=== PATIENT | female | born 1945 | race Caucasian/White ===

== ENCOUNTER 2019-06-26 11:40 | Emergency (ER) | payer OTHER, MEDICARE ==
[2019-06-26 11:50] VITALS: BMI 29.2
--- NOTE | 2019-06-26 12:13 | PDOC ---
History of Present Illness - General Chief Complaint: Lightheaded Stated Complaint: SENT BY DOC Time Seen by Provider: 06/26/19 12:12 History Source: Patient - History of Present Illness Initial Comments: 06/26/19 13:01 Ms. Clarke is a 73 y/o woman w/hx HTN presenting with acute worsening of two months of lower back and L leg pain. She reports following closely with Dr. Chapa who has been managing her for a presumed sciatica. She reports several weeks of physical therapy which has not changed her symptoms. She reports presenting to the hospital today at the request of Dr. Chapa for outpatient blood work, and having an acute worsening of her pain today when attempting to stand after registering. She reports 10/10 L lower back and buttock pain, non radiating, stabbing pain. She reports taking x2 motrin this morning which did not improve the pain. She denies any fevers, IVDU, sob, chest pain, mariia-rectal or groin numbness, urinary retention, fecal incontinence. She reports numbness over her L foot. She reports severe pain with movement. Past History - Past Medical History Allergies/Adverse Reactions: Allergies Allergy/AdvReac Type Severity Reaction Status Date / Time No Known Drug Allergies Allergy Verified 06/26/19 11:50 Home Medications: Ambulatory Orders Calcium Carbonate/Vitamin D3 [Calcium 600-Vit D3 200 Tablet] 1 each PO DAILY Lovastatin 10 mg PO HS 05/17/12 Magnesium Oxide [Magnesium] 800 mg PO DAILY 05/17/12 Metoprolol Succinate [Toprol XL -] 50 mg PO DAILY 05/17/12 Omeprazole Magnesium [Prilosec (OTC)] 20 mg PO DAILY 05/17/12 Riboflavin (Vitamin B2) [Vitamin B-2] 200 mg PO DAILY 05/17/12 Amlodipine Besylate 5 mg PO DAILY 06/26/19 Cyclobenzaprine HCl [Flexeril -] 5 mg PO BID PRN 5 Days #10 tablet 06/26/19 Losartan Potassium 100 mg PO DAILY 06/26/19 Anemia: No Asthma: No Cancer: No Cardiac Disorders: No CVA: No COPD: No CHF: No Dementia: No Diabetes: No GI Disorders: Yes (ULCER) Disorders: No HTN: Yes Hypercholesterolemia: Yes Liver Disease: No Seizures: No Thyroid Disease: No - Surgical History Abdominal Surgery: No Appendectomy: No Cardiac Surgery: No Cholecystectomy: No Lung Surgery: No Neurologic Surgery: No Orthopedic Surgery: No - Psycho Social/Smoking Cessation Hx Smoking History: Never smoked Have you smoked in the past 12 months: No Hx Alcohol Use: No Drug/Substance Use Hx: No Substance Use Type: Alcohol Hx Substance Use Treatment: No Review of Systems - Review of Systems Able to Perform ROS?: Yes Comments:: 06/26/19 13:25 ROS: GENERAL/CONSTITUTIONAL: No fever or chills. No weakness. HEAD, EYES, EARS, NOSE AND THROAT: No change in vision. No ear pain or discharge. No sore throat. CARDIOVASCULAR: No chest pain or shortness of breath RESPIRATORY: No cough, wheezing, or hemoptysis. GASTROINTESTINAL: No nausea, vomiting, diarrhea or constipation. GENITOURINARY: No dysuria, frequency, or change in urination. MUSCULOSKELETAL: Low back pain, L rey pain, L buttock pain. No other joint or muscle swelling or pain. No neck or back pain. SKIN: No rash NEUROLOGIC: L foot numbness. No headache, vertigo, loss of consciousness, or other change in strength/sensation. ENDOCRINE: No increased thirst. No abnormal weight change HEMATOLOGIC/LYMPHATIC: No anemia, easy bleeding, or history of blood clots. ALLERGIC/IMMUNOLOGIC: No hives or skin allergy. *Physical Exam - Vital Signs Last Vital Signs Temp Pulse Resp BP Pulse Ox 97.7 F 76 16 141/72 98 06/26/19 11:47 06/26/19 11:47 06/26/19 11:47 06/26/19 11:47 06/26/19 11:47 - Physical Exam 06/26/19 13:27 PE: GENERAL: Awake, alert, and fully oriented, laying back in hospital bed. Writhing with movement of lower back. HEAD: No signs of trauma, normocephalic, atraumatic EYES: PERRLA, EOMI, sclera anicteric, conjunctiva clear ENT: Auricles normal inspection, hearing grossly normal, nares patent, oropharynx clear without exudates. Moist mucosa NECK: Normal ROM, supple, no lymphadenopathy, JVD, or masses LUNGS: No distress, speaks full sentences, clear to auscultation bilaterally HEART: Regular rate and rhythm, normal S1 and S2, no murmurs, rubs or gallops, peripheral pulses normal and equal bilaterally. ABDOMEN: Soft, nontender, normoactive bowel sounds. No guarding, no rebound. No masses EXTREMITIES : No pain with passive ranging of L knee. Pain with passive hip flexion past 45 degrees. No point tenderness. Normal inspection, no edema. No clubbing or cyanosis NEUROLOGICAL: Cranial nerves II through XII grossly intact. Normal speech, no focal sensorimotor deficits SKIN: Warm, Dry, normal turgor, no rashes or lesions noted ED Treatment Course - LABORATORY CBC & Chemistry Diagram: 06/26/19 12:53 06/26/19 12:53 Medical Decision Making - Medical Decision Making 06/26/19 13:38 73F w/hx HTN p/w acute worsening of lower back pain after presenting for blood draw by PCP. No red flag back pain signs at this time, although numbness concerning for spinal stenosis, discitis, ligamentous injury, msk strain. Plan: CBC CMP Cardiac profile EKG CXR ESR CRP LEONCIO Ofirmev 1g IV Flexeril 5mg Valium 2mg Dispo: Pending pain control, reassessment 06/26/19 18:44 CBC - wnl CMP - wnl Troponin - negative On reassessment, Ms. Clarke is ambulating comfortably without assistance. Plan for discharge with close outpatient PCP follow up. Discharge - Discharge Information Problems reviewed: Yes Clinical Impression/Diagnosis: Low back pain Qualifiers: Chronicity: acute Back pain laterality: left Sciatica presence: with sciatica Sciatica laterality: sciatica of left side Qualified Code(s): M54.42 - Lumbago with sciatica, left side Condition: Stable Disposition: HOME - Admission No - Additional Discharge Information Prescriptions: Cyclobenzaprine HCl [Flexeril -] 5 mg PO BID PRN 5 Days #10 tablet PRN Reason: Back Pain - Follow up/Referral - Patient Discharge Instructions Patient Printed Discharge Instructions: DI for Low Back Pain Additional Instructions: You were seen in the ER for low back pain. Your symptoms improved with flexeril and you were able to walk. Please be sure to follow up with your primary care physician as soon as possible, in the next 2-3 days. Please return to the ER if you have numbness around your groin or rectum, if you have tingling in your legs , are unable to walk, or the pain is unable to be controlled. - Post Discharge Activity
[2019-06-26] MEDS ORDERED: ACETAMINOPHEN 1000 MG/100 ML VIAL (NON FORMULARY) IVPB ONE (12:49)
[2019-06-26] MEDS ORDERED: ACETAMINOPHEN INJECTION 100 ML IVPB ONE (13:02)
[2019-06-26 13:20] LABS: BASO % 0.5 % (0-2.0); EOS % 0.5 % (0-4.5); HEMATOCRIT 41.1 % (32.4-45.2); HEMOGLOBIN 13.8 GM/dL (10.7-15.3); LYMPH % 14.1 % (8-40); MCH 29.5 pg (25.7-33.7); MCHC 33.5 g/dl (32.0-36.0); MEAN CELL VOLUME 87.9 fl (80-96); MONO % 8.9 % (3.8-10.2); PLATELET COUNT 264 K/MM3 (134-434); RBC 4.67 M/mm3 (3.60-5.2); RDW 13.1 % (11.6-15.6); WHITE BLOOD COUNT 7.1 K/mm3 (4.0-10.0)
[2019-06-26] MEDS ORDERED: CYCLOBENZAPRINE HCL 5 MG TABLET PO ONE (13:28)
[2019-06-26] MEDS ORDERED: diazePAM 2 MG TABLET PO ONE (13:29)
[2019-06-26] MEDS ORDERED: diazePAM 2 MG TABLET ONE (13:33)
[2019-06-26] MEDS ORDERED: CYCLOBENZAPRINE HCL 10 MG TABLET (FP) ONE (13:33)
[2019-06-26 13:56] LABS: URIC ACID 3.6 mg/dL (2.6-7.2)
[2019-06-26 13:56] LABS: PH,URINE 8.5 (5.0-8.0); URINE APPEARANCE CLEAR; URINE BILIRUBIN NEGATIVE (NEGATIVE); URINE COLOR YELLOW; URINE GLUCOSE (UA) NEGATIVE (NEGATIVE); URINE KETONE NEGATIVE (NEGATIVE); URINE LEUK ESTERASE NEGATIVE (NEGATIVE); URINE NITRITE NEGATIVE (NEGATIVE); URINE PROTEIN NEGATIVE (NEGATIVE); URINE UROBILINOGEN 0.2 mg/dL (0.2-1.0)
[2019-06-26 13:58] LABS: ALK PHOS 92 U/L (45-117); ANION GAP 9 MMOL/L (8-16); BILIRUBIN,TOTAL 0.4 mg/dL (0.2-1); BLOOD UREA NITROGEN 17.2 mg/dL (7-18); CALCIUM 9.3 mg/dL (8.5-10.1); CHLORIDE 109 mmol/L (98-107); CO2 24 mmol/L (21-32); CREATININE 0.9 mg/dL (0.55-1.3); GLUCOSE,RANDOM 95 mg/dL (74-106); POTASSIUM 4.1 mmol/L (3.5-5.1); SGOT/AST 15 U/L (15-37); SGPT/ALT 27 U/L (13-61); SODIUM 142 mmol/L (136-145); TOT PROT 7.4 g/dl (6.4-8.2)
[2019-06-26 14:03] LABS: ERYTHROCYTE SEDIMENTATION RATE 7 mm/hr (0-30)
--- NOTE | 2019-06-26 14:11 | PDOC ---
Attending Attestation - Resident Resident Name: Jj March - ED Attending Attestation I have performed the following: I have examined & evaluated the patient, The case was reviewed & discussed with the resident, I agree w/resident's findings & plan - HPI HPI: 06/26/19 14:07 73-year-old female with history of hypertension presents for acute worsening of left lower extremity pain. Patient has had left lateral lower leg pain for about 1 month, presumed sciatica versus radiculopathy by PCP and treated with [id number] pain medications. For several months, has had mild intermittent discomfort of the left hip worse with initiation of movement and presumed to be arthritis, also controlled with [id number] medications. Patient was sent to the hospital today by Dr. Sparrow for outpatient blood tests to further evaluate worsening left leg joint pain, upon exiting the vehicle patient had acute sharp worsening of her left hip pain so she presents for evaluation in the ED because she is unable to stand. No numbness or tingling, no motor deficit, isolated pain. No fevers or chills, no history of injury, no known history of disc disease or radiculopathy. - Physicial Exam PE: 06/26/19 14:09 Vitals are within normal limits Alert lying uncomfortably in stretcher Heart is regular, lungs are clear, abdomen benign No midline spine tenderness Full range of motion with full strength of bilateral lower extremities at hip/ knee/ankle/toe flexion and extension. 2+ distal pulses, sensation intact without objective deficit, no bruising or swelling. No focal bony tenderness. - Medical Decision Making 06/26/19 14:09 73-year-old female with about 1 month of mild to moderate left lower extremity pain, now with acute worsening of left hip pain without history of injury or strain, and without red flags on history or physical exam suggestive of infectious or vascular process. Low suspicion for fracture or dislocation given full range of motion and no tenderness, but presentation does seem most consistent with lumbar radiculopathy. Outpatient labs sent including inflammatory markers Pain control Consider neuro spine imaging Reassess and disposition accordingly Heart Score/ECG Review #1 ECG reviewed & interpreted by me at: 13:02 General ECG Interpretation: Sinus Rhythm, Normal Rate (63), Normal Intervals ( qtc 452), No acute ischemic changes
[2019-06-26 17:06] VITALS: BP 132/79; PULSE 85; TEMP 97.9
--- NOTE | 2019-06-27 08:45 | EKG ---
Test Reason : Blood Pressure : / mmHG Vent. Rate : 063 BPM Atrial Rate : 063 BPM P-R Int : 184 ms QRS Dur : 078 ms QT Int : 442 ms P-R-T Axes : 063 050 067 degrees QTc Int : 452 ms NORMAL SINUS RHYTHM NORMAL ECG WHEN COMPARED WITH ECG OF 17-MAY-2012 10:12, NO SIGNIFICANT CHANGE WAS FOUND Confirmed by MD ELAM PENG ([id number]) on 06/27/2019 8:45:24 AM Referred By: Confirmed By:ROSHAN ELAM MD
== END 2019-06-26 17:05 | disposition home or self-care (01) ==
LOC: JER 11:40
PROC: 3E033NZ Introduction of Analgesics, Hypnotics, Sedatives into Peripheral Vein, Percutaneous Approach (ICD-10-PCS; principal; 2019-06-26)
DX: M54.42 Lumbago with sciatica, left side (principal); I10 Essential (primary) hypertension; E78.5 Hyperlipidemia, unspecified; E78.00 Pure hypercholesterolemia, unspecified; Z87.19 Personal history of other diseases of the digestive system
CPT/HCPCS: 36415; 80053; 81003; 82550; 84484; 84550; 85025; 85651; 86038; 86140; 86431; 87086; 93005; 93010; 93971-TC; 96374; 99285-25; J0131

== ENCOUNTER 2020-12-05 04:27 | Day surgery (SDC) | payer OTHER, MEDICARE ==
[2020-12-04 11:40] VITALS: BMI 28.3
[2020-12-05] MEDS ORDERED: BUPIVACAINE HCL/PF 0.75% 10 ML VIAL ONE (07:38)
[2020-12-05] MEDS ORDERED: IOHEXOL 180 MG/1 ML ML IJ ONE (13:08)
[2020-12-05] MEDS ORDERED: LIDOCAINE HCL 1% PRESERVATIVE FREE - 30ML VIAL IJ ONE (13:09)
[2020-12-05] MEDS ORDERED: DEXAMETHASONE SOD PHOSPHATE 10 MG/1 ML VIAL IM ONE (13:10)
[2020-12-05] MEDS ORDERED: DEXAMETHASONE SOD PHOSPHATE 10 MG/1 ML VIAL ONE (13:24)
[2020-12-05] MEDS ORDERED: LIDOCAINE HCL/PF 1% SDV 5ML VIAL ONE (13:24)
[2020-12-05 14:44] VITALS: BP 153/72; PULSE 60; TEMP 97.7
== END 2020-12-05 13:40 | disposition home or self-care (01) ==
LOC: JASU-SURG 04:27
PROVIDERS: ATTEND Pain Medicine Pain Medicine
PROC: 3E0R3BZ Introduction of Anesthetic Agent into Spinal Canal, Percutaneous Approach (ICD-10-PCS; principal; 2020-12-05 11:45)
DX: M54.16 Radiculopathy, lumbar region (principal)
CPT/HCPCS: 76000-TC-FY; J1100

== ENCOUNTER 2021-01-02 04:26 | Day surgery (SDC) | payer OTHER, MEDICARE ==
[2021-01-02] MEDS ORDERED: DEXAMETHASONE SOD PHOSPHATE 4 MG/1 ML VIAL ONE (07:15)
[2021-01-02] MEDS ORDERED: LIDOCAINE HCL/PF 1% SDV 5ML VIAL ONE (07:17)
[2021-01-02] MEDS ORDERED: LIDOCAINE HCL 1% PRESERVATIVE FREE - 30ML VIAL IJ ONE (08:35)
[2021-01-02] MEDS ORDERED: DEXAMETHASONE SOD PHOSPHATE 10 MG/1 ML VIAL IM ONE (08:35)
[2021-01-02] MEDS ORDERED: IOHEXOL 180 MG/1 ML ML IJ ONE (08:35)
[2021-01-02 09:04] VITALS: BP 147/77; PULSE 52; TEMP 96.4
== END 2021-01-02 10:53 | disposition home or self-care (01) ==
LOC: JASU-SURG 04:26
PROVIDERS: ATTEND Pain Medicine Pain Medicine
PROC: 3E0R33Z Introduction of Anti-inflammatory into Spinal Canal, Percutaneous Approach (ICD-10-PCS; 2021-01-02)
PROC: 3E0R3BZ Introduction of Anesthetic Agent into Spinal Canal, Percutaneous Approach (ICD-10-PCS; principal; 2021-01-02 08:15)
DX: M54.16 Radiculopathy, lumbar region (principal)
CPT/HCPCS: 76000-TC-FY; J1100

== ENCOUNTER 2021-10-20 04:33 | Day surgery (SDC) | payer OTHER, MEDICARE ==
[2021-10-15 14:46] VITALS: BMI 27.4
[2021-10-20] MEDS ORDERED: LIDOCAINE HCL 1% PRESERVATIVE FREE - 30ML VIAL IJ ONE (09:34)
[2021-10-20] MEDS ORDERED: BUPIVACAINE HCL/PF 0.75% 10 ML VIAL NR ONE ×2 (09:34→09:36)
[2021-10-20 10:11] VITALS: BP 141/71; PULSE 55; TEMP 97.5
== END 2021-10-20 10:45 | disposition home or self-care (01) ==
LOC: JASU-SURG 04:33
PROVIDERS: ATTEND Pain Medicine Pain Medicine
PROC: 3E0T33Z Introduction of Anti-inflammatory into Peripheral Nerves and Plexi, Percutaneous Approach (ICD-10-PCS; 2021-10-20)
PROC: 3E0T3BZ Introduction of Anesthetic Agent into Peripheral Nerves and Plexi, Percutaneous Approach (ICD-10-PCS; principal; 2021-10-20 09:15)
DX: M47.816 Spondylosis without myelopathy or radiculopathy, lumbar region (principal)
CPT/HCPCS: 76000-TC-FY

== ENCOUNTER 2022-10-23 14:57 | Observation (INO) | payer OTHER, MEDICARE ==
[2022-10-23 15:55] LABS: HEMOGLOBIN 13.8 G/dL (10.7-15.3); MCH 30.8 pg (25.7-33.7); MCHC 33.8 g/dl (32.0-36.0); MEAN CELL VOLUME 91.2 fl (80-96); MEAN PLT VOLUME 8.1 fl (7.5-11.1); PLATELET COUNT 239.2 10^3/uL (134-434); RDW 13.9 % (11.6-15.6); WHITE BLOOD COUNT 7.3 10^3/uL (4.0-10.8)
[2022-10-23 16:01] LABS: PLATELET ESTIMATE ADEQUATE
[2022-10-23 16:59] LABS: POTASSIUM 4.1 mmol/L (3.5-5.1)
[2022-10-23 17:01] LABS: CALCIUM 9.6 mg/dL (8.5-10.1)
[2022-10-23 17:02] LABS: BLOOD UREA NITROGEN 16.2 mg/dL (7-18)
[2022-10-23 17:05] LABS: CREATININE 0.8 mg/dL (0.55-1.3)
[2022-10-23 17:06] LABS: BILIRUBIN,TOTAL 0.3 mg/dL (0.2-1); TOT PROT 7.3 g/dl (6.4-8.2)
[2022-10-23] MEDS ORDERED: ACETAMINOPHEN 325 MG TABLET (FP) PO PRN (18:50)
[2022-10-23 20:37] VITALS: BMI 28.0
[2022-10-23] MEDS: GABAPENTIN 100 MG CAPSULE PO SCH (21:12)
[2022-10-23] MEDS: HEPARIN NA (PORCINE) 5,000 UNITS/ML 1ML VIAL SQ SCH (21:12)
[2022-10-23] MEDS ORDERED: ATORVASTATIN CA 10 MG TABLET (FP) PO SCH (22:00)
[2022-10-24] MEDS ORDERED: LOSARTAN POTASSIUM 50 MG TABLET PO SCH (07:00)
[2022-10-24] MEDS ORDERED: amLODIPine BESYLATE 5 MG TABLET (FP) PO SCH (07:00)
[2022-10-24 08:44] LABS: HEMOGLOBIN 13.1 G/dL (10.7-15.3); MCH 29.9 pg (25.7-33.7); MCHC 32.7 g/dl (32.0-36.0); MEAN CELL VOLUME 91.6 fl (80-96); MEAN PLT VOLUME 8.2 fl (7.5-11.1); RBC 4.37 10^6/uL (3.60-5.2); RDW 13.8 % (11.6-15.6); WHITE BLOOD COUNT 6.7 10^3/uL (4.0-10.8)
[2022-10-24 09:14] VITALS: BP 125/65; PULSE 60; RESP 19; TEMP 98.2
[2022-10-24] MEDS: HEPARIN NA (PORCINE) 5,000 UNITS/ML 1ML VIAL SQ SCH (09:15)
[2022-10-24] MEDS: GABAPENTIN 100 MG CAPSULE PO SCH (09:15)
[2022-10-24 10:11] LABS: POTASSIUM 4.4 mmol/L (3.5-5.1)
[2022-10-24 10:13] LABS: BLOOD UREA NITROGEN 13.4 mg/dL (7-18)
[2022-10-24 10:14] LABS: ALBUMIN 3.5 g/dl (3.4-5.0); CALCIUM 9.2 mg/dL (8.5-10.1); MAGNESIUM 2.4 mg/dL (1.8-2.4)
[2022-10-24 10:16] LABS: CREATININE 0.8 mg/dL (0.55-1.3)
[2022-10-24 10:18] LABS: BILIRUBIN,TOTAL 0.5 mg/dL (0.2-1); TOT PROT 6.5 g/dl (6.4-8.2)
[2022-10-24 10:27] LABS: PLATELET ESTIMATE ADEQUATE
== END 2022-10-24 11:58 | disposition home or self-care (01) ==
LOC: FER 14:57 → FM/S 17:15
PROVIDERS: ADMIT Internal Medicine; ATTEND Internal Medicine
PROC: 3E023GC Introduction of Other Therapeutic Substance into Muscle, Percutaneous Approach (ICD-10-PCS; principal; 2022-10-23)
DX: I16.0 Hypertensive urgency (principal); R55 Syncope and collapse; R41.82 Altered mental status, unspecified; E78.5 Hyperlipidemia, unspecified
CPT/HCPCS: 36415; 70450-TC; 71045-TC-FY; 80053; 80061; 81003; 82962; 83036; 83735; 84443; 84484; 85025; 93005; 96372; 99285-25; G0378; J1644